=== PATIENT | male | born 1995 | race Caucasian/White ===

== ENCOUNTER 2019-09-17 13:45 | Outpatient (CLI) | payer OTHER, SELFPAY ==
[2019-09-18 07:36] LABS: Rapid Plasma Reagin Non-Reactive (NonReactive)
[2019-09-19 14:15] LABS: Herpes Simplex Type 1 DNA PCR Not Detected (Not Detected); Herpes Simplex Type 2 DNA PCR Not Detected (Not Detected)
[2019-09-19 21:01] LABS: Hepatitis C RNA, Quant PCR <15 IU/mL
[2019-09-20 15:16] LABS: Hepatitis B DNA PCR <1.00 Log IU/mL; Hepatitis B DNA PCR <10 IU/mL
[2019-09-24 16:31] LABS: HIV 1 RNA PCR <1.30 Log cps/mL; HIV 1 RNA PCR <20 Copies/mL
== END 2019-09-17 13:46 | disposition home or self-care (01) ==
PROVIDERS: PCP Emergency Medicine; Visit Provider Emergency Medicine
DX: Z20.2 Contact with and (suspected) exposure to infections with a predominantly sexual mode of transmission (principal)
CPT/HCPCS: 36415; 86592; 87491; 87517; 87522; 87529; 87536; 87591

== ENCOUNTER 2019-11-28 15:53 | Emergency (ER) | payer OTHER, SELFPAY ==
--- NOTE | 2019-11-28 16:00 | ED.GENADULT ---
HPI - General Adult General Chief complaint: Unspecified Stated complaint: GROIN BUMP Time Seen by Provider: 11/28/19 16:00 Source: patient and RN notes reviewed Mode of arrival: ambulatory Limitations: no limitations History of Present Illness HPI narrative: 23 year old male who presents to [facility] care with complaints of pea size bump at the base of his penis for the past 5 days. Area is at dorsal aspect of proximal penis, no pain or redness noted to area. Patient denies any recent fevers, chills,or sweats, denies any changes in urination with no burning or pain with urination, no penile discharge. Patient states that he just had a full STD evaluation thru labs at his PCP. MD complaint: pump on penis Onset (ago): day(s) (5) Location: genitals Radiation: non-radiation Severity: mild Relieving factors: none Exacerbating factors: none Associated symptoms: denies other symptoms Treatments prior to arrival: none Related Data Home Medications Medication Instructions Recorded Confirmed glycopyrrolate 2 mg PO BID 11/28/19 11/28/19 Allergies Allergy/AdvReac Type Severity Reaction Status Date / Time No Known Drug Allergies Allergy Unknown none Verified 11/28/19 16:04 Review of Systems Review of Systems: Narrative: CONSTITUTIONAL: Denies fever, chills, or sweats. EYES: Denies visual changes, redness, or discharge. ENT: Denies rhinorrhea, congestion, sore throat, or otalgia. CARDIOVASCULAR: Denies chest pain, palpitations, or edema. RESPIRATORY: Denies cough or dyspnea. GASTROINTESTINAL: Denies abdominal pain, nausea, vomiting, or diarrhea. GENITOURINARY: Denies dysuria or hematuria. SKIN: Denies rash or itching.pea size raised area to dorsal proximal penis MUSCULOSKELETAL: Denies back pain, joint pain, or myalgia. NEUROLOGIC: Denies headache, numbness, or weakness. PSYCHIATRIC: Denies anxiety or depression. All systems reviewed & are unremarkable except as noted in HPI and below PMFSH Past Medical History Medical History (Updated 11/29/19 @ 10:31 by Vernell Gilmore NP) Exercise-induced asthma Hyperhidrosis Social History Social History (Updated 11/29/19 @ 10:30 by Vernell Gilmore NP) Tobacco type: e-cigarettes/vaping Alcohol intake: current Gender identity (if verbalized by the patient): Male Comments At time of signature, agree with nursing past medical, surgical, social history. There is no relevant family history pertinent to the presenting complaint Exam Narrative: Exam Narrative: GENERAL: Well-appearing, well-nourished, and in no acute distress. HEAD: Normocephalic, atraumatic. EYES: PERRLA and EOMI. ENT: Nares clear, no rhinorrhea or epistaxis. Mucous membranes moist. NECK: Supple.no lymphadenopathy CHEST: Clear to auscultation. No respiratory distress. HEART: Regular rate and rhythm. No murmur heard. Normal peripheral pulses. ABDOMEN: Soft, nontender, nondistended, normal active bowel sounds. EXTREMITIES: Normal range of motion. No edema. SKIN: Warm, dry, no rash pea size lesion proximal dorsal penis non tender on palpation with fibrous feel to lesion.Tissue noted to be under skin level,.No redness or swelling to tissue NEURO: No focal deficits. Alert and oriented x3. Course Vital Signs Vital signs: Vital Signs Temperature 36.5 C 11/28/19 16:02 Pulse Rate 80 11/28/19 16:02 Respiratory Rate 20 11/28/19 16:02 Blood Pressure 119/85 11/28/19 16:02 Pulse Oximetry 100 11/28/19 16:02 Temperature 36.5 C 11/28/19 16:02 Pulse Rate 80 11/28/19 16:02 Respiratory Rate 20 11/28/19 16:02 Blood Pressure 119/85 11/28/19 16:02 Pulse Oximetry 100 11/28/19 16:02 Medical Decision Making Differential Diagnosis Differential Diagnosis: lymph node enlargement, lesion to proximal dorsal penis,fibrosis tissue lesion,penile abnormality Medical Records Medical records reviewed: Yes I reviewed the patient's medical records. Vital Signs Vital Signs: Vital Signs Temperature
[2019-11-28 16:02] VITALS: BP 119/85; PULSE 80; RESP 20; TEMP 36.5; O2SAT 100
== END 2019-11-28 16:39 | disposition home or self-care (01) ==
PROVIDERS: Emergency Provider Registered Nurse; PCP Emergency Medicine
DX: N50.9 Disorder of male genital organs, unspecified (principal); J45.990 Exercise induced bronchospasm; R61 Generalized hyperhidrosis; F17.200 Nicotine dependence, unspecified, uncomplicated
CPT/HCPCS: 99211; G0463

== ENCOUNTER 2020-08-12 13:42 | Outpatient (CLI) | payer OTHER, SELFPAY | END 2020-08-12 13:43 | LOC: ANHCOVIDVC 13:44 | PROVIDERS: PCP Emergency Medicine | DX: Z23 Encounter for immunization (principal) | CPT/HCPCS: 0001A; 91300 ==

== ENCOUNTER 2020-09-02 13:36 | Outpatient (CLI) | payer OTHER, SELFPAY | END 2020-09-02 13:37 | disposition home or self-care (01) | LOC: ANHCOVIDVC 13:36 | PROVIDERS: PCP Emergency Medicine | DX: Z23 Encounter for immunization (principal) | CPT/HCPCS: 0002A; 91300 ==

== ENCOUNTER 2021-10-16 09:42 | Outpatient (CLI) | payer BC, SELFPAY ==
[2021-10-16 10:15] LABS: Alanine Aminotransferase 37 U/L (6-50); Albumin Level 4.4 g/dL (3.5-5.1); Alkaline Phosphatase 50 U/L (38-126); Anion Gap 7 mmol/L (8-16); Aspartate Amino Transferase 36 U/L (17-59); Blood Urea Nitrogen 12 mg/dL (9-20); Calcium 8.8 mg/dL (8.4-10.2); Carbon Dioxide 25 mmol/L (22-30); Chloride 106 mmol/L (98-107); Cholesterol 152 mg/dL (0-200); Estimated Glomerular Filt Rate > 60; Glucose 100 mg/dL (65-110); HDL Direct 38 mg/dL; Potassium 4.3 mmol/L (3.4-5.0); Sodium 138 mmol/L (137-145); Triglycerides 133 mg/dL (<150)
[2021-10-16 10:25] LABS: LDL Cholesterol Direct 75 mg/dL
== END 2021-10-16 09:43 | disposition home or self-care (01) ==
LOC: ANHLAB 09:43
PROVIDERS: PCP Emergency Medicine; Visit Provider Emergency Medicine
DX: R53.83 Other fatigue (principal); Z13.6 Encounter for screening for cardiovascular disorders; F52.4 Premature ejaculation
CPT/HCPCS: 36415; 80053; 80061; 84443

== ENCOUNTER 2021-11-20 07:09 | Outpatient (CLI) | payer BC, SELFPAY ==
[2021-11-24 19:22] LABS: Testosterone Free 97.4 pg/mL (35.0-155.0); Testosterone Total 427 ng/dL (250-1100)
== END 2021-11-20 07:10 | disposition home or self-care (01) ==
LOC: ANHLAB 07:11
PROVIDERS: PCP Emergency Medicine; Visit Provider Emergency Medicine
DX: N52.9 Male erectile dysfunction, unspecified (principal); F52.4 Premature ejaculation
CPT/HCPCS: 36415; 84402; 84403

== ENCOUNTER 2023-05-19 10:59 | Outpatient (CLI) | payer BC, SELFPAY | END 2023-05-19 11:00 | disposition home or self-care (01) | LOC: ANHAUDIO 11:02 | PROVIDERS: PCP Emergency Medicine; Visit Provider Emergency Medicine | DX: H91.90 Unspecified hearing loss, unspecified ear (principal) | CPT/HCPCS: 92552; 92553; 92556; 92567 ==

== ENCOUNTER 2023-11-10 06:58 | Outpatient (CLI) | payer BC, SELFPAY ==
[2023-11-10 07:47] LABS: Alanine Aminotransferase 25 U/L (6-50); Albumin Level 4.5 g/dL (3.5-5.1); Alkaline Phosphatase 59 U/L (38-126); Anion Gap 8 mmol/L (4-12); Aspartate Amino Transferase 28 U/L (17-59); Bilirubin,Total 1.4 mg/dL (0.2-1.3); Blood Urea Nitrogen 12 mg/dL (9-20); Calcium 8.7 mg/dL (8.4-10.2); Carbon Dioxide 29 mmol/L (22-30); Chloride 102 mmol/L (98-107); Cholesterol 132 mg/dL (0-200); Estimated Glomerular Filt Rate > 60; Glucose 95 mg/dL (65-110); HDL Direct 40 mg/dL; Potassium 4.3 mmol/L (3.4-5.0); Sodium 139 mmol/L (137-145); Triglycerides 116 mg/dL (<150)
[2023-11-10 07:59] LABS: LDL Cholesterol Direct 63 mg/dL
[2023-11-10 09:16] LABS: Vitamin D 25 Hydroxy 44.1 ng/mL
== END 2023-11-10 06:59 | disposition home or self-care (01) ==
PROVIDERS: PCP Emergency Medicine; Visit Provider Emergency Medicine
DX: E78.5 Hyperlipidemia, unspecified (principal); E55.9 Vitamin D deficiency, unspecified; Z13.21 Encounter for screening for nutritional disorder; Z13.220 Encounter for screening for lipoid disorders; Z13.228 Encounter for screening for other metabolic disorders
CPT/HCPCS: 36415; 80053; 80061; 82306